=== PATIENT | female | born 1940 | race African-American/Black ===

== ENCOUNTER 2016-12-02 23:20 | Emergency (ER) | payer MEDICARE, BC, OTHER ==
[~2016-12-02] VITALS: Ht 167.6 cm; Wt 73.0 kg
[2016-12-03 04:20] LABS: EOSINOPHILS % 1.9 % (0.0-5.0); HEMATOCRIT. 30.2 % (36.0-48.0); HEMOGLOBIN. 10.2 g/dL (12.0-16.0); LYMPHOCYTES % 21.9 % (20.0-50.0); MEAN CORPUSCULAR HEMOGLOBIN 28.7 pg (28.0-32.0); MEAN PLATELET VOLUME 8.2 fl (7.4-10.4); MONOCYTES % 8.6 % (2.0-8.0); NEUTROPHILS % 66.6 % (40.0-76.0); PLATELET 256 x1000/uL (130-400); RED BLOOD CELL COUNT 3.56 mill/uL (4.2-5.4); RED CELL DISTRIBUTION WIDTH 16.3 % (11.6-14.6)
[2016-12-03 04:31] LABS: PROTHROMBIN TIME 10.5 sec (9.4-11.6)
[2016-12-03 04:40] LABS: CARBON DIOXIDE 23 mEq/L (21-32); CHLORIDE 104 mEq/L (98-107); TROPONIN I 0.14 ng/mL (0.00-0.04)
[2016-12-03] MEDS: ONDANSETRON HCL 4MG/2ML VIAL IV ONE (04:53)
[2016-12-03] MEDS: KETOROLAC 30MG/ML VIAL IV STA (04:53)
[2016-12-03] MEDS: SODIUM CHLORIDE 0.9% 500 ML IV ONE (04:53)
[2016-12-03 05:15] LABS: GLUCOSE URINE NEGATIVE (NEGATIVE); KETONES URINE NEGATIVE (NEGATIVE); LEUKOCYTE ESTERASE URINE NEGATIVE (NEGATIVE); NITRITE URINE POSITIVE (NEGATIVE); OCCULT BLOOD URINE NEGATIVE (NEGATIVE); PH URINE 5.5 (4.5-8.0); PROTEIN URINE NEGATIVE (NEGATIVE); SPECIFIC GRAVITY URINE 1.012 (1.005-1.030)
[2016-12-03 05:46] LABS: CLARITY URINE HAZY (CLEAR); COLOR URINE YELLOW (YELLOW)
[2016-12-03 06:41] VITALS: BP 147/69
== END 2016-12-03 07:31 | disposition home or self-care (01) ==
LOC: ER 23:20
DX: N39.0 Urinary tract infection, site not specified (principal)
CPT/HCPCS: 36415; 80053; 81001; 82962; 83690; 84484; 85025; 85610; 87086; 93005; 96374; 96375; 99285; J1885; J2405; J7030